=== PATIENT | male | born 1955 | race Two or more races ===

== ENCOUNTER 2017-12-24 08:59 | Emergency (ER) | payer OTHER ==
[2017-12-24] MEDS: KETOROLAC 30 MG INJ IM (09:39)
== END 2017-12-24 10:16 | disposition home or self-care (01) ==
LOC: FTE 08:59
DX: S49.91XA Unspecified injury of right shoulder and upper arm, initial encounter (principal); J45.909 Unspecified asthma, uncomplicated; W01.0XXA Fall on same level from slipping, tripping and stumbling without subsequent striking against object, initial encounter; Y92.9 Unspecified place or not applicable
CPT/HCPCS: 73030; 73030-RT; 96372; 99284-25